=== PATIENT | female | born 1985 | race Caucasian/White ===

== ENCOUNTER 2020-01-27 12:31 | Emergency (ER) | payer OTHER, SELFPAY ==
--- NOTE | ~2020-01-27 | US_ITS ---
EXAMINATION: US pelvic complete w TV DATE: 01/27/2020 15:09 INDICATION: Abdominal pain for 5 days. Adnexal cysts. Comparison:CT dated 01/27/2020 TECHNIQUE: Multiple transabdominal and endovaginal sonographic images of the pelvis performed. FINDINGS: The uterus is surgically absent. There is a complicated right ovarian cyst measuring 7.4 x 3.8 x 3.8 cm with thin internal septations. No abnormal internal vascularity. There is a 2 cm left ov leigh cysts. The right ovary measures 5 x 8 x 4.7 cm and the left ovary measures 2.9 x 2.5 x 2.3 cm. There are sm all follicles in each ovary. There is no free fluid in the pelvis. There are no abnormal masses seen on either side. IMPRESSION: 1. Bilateral ovarian cysts, largest in the right ovary measuring 7.4 x 3.83 x 3.82 cm, likely benign. Follow-up ultrasound in 4-6 weeks recommended to assess for resolution. Reviewed, dictated and finalized at location A. IMPRESSION: 1. Bilateral ovarian cysts, largest in the right ovary measuring 7.4 x 3.83 x 3 .82 cm, likely benign. Follow-up ultrasound in 4-6 weeks recommended to assess for resolution.
--- NOTE | ~2020-01-27 | CT_ITS ---
EXAMINATION: CT abdomen pelvis w con DATE: 01/27/2020 13:58 INDICATION: Low abdominal pain. Diarrhea. TECHNIQUE: Computed tomography (CT) of the abdomen and pelvis was performed with 100 mL Omnipaque 350 intravenous contrast. Automated exposure control and iterative reconstruction technique were employe d. The dose-length product was 243.41 mGy-cm. COMPARISON: None. FINDINGS: The visualized portions of the lung bases demonstrate mild atelectasis. No pleural effusion . The heart size is normal. No pericardial effusion. There is a 5 mm cyst in the liver. The gallbladd er is absent. The spleen, pancreas, adrenal glands, and kidneys are normal. There are no dilated loop s of bowel. The appendix is normal. There is a 6.6 x 4.1 x 4.6 cm cyst in the right adnexa. There are no pathologically enlarged lymph nodes. There is no free intraperitoneal fluid. There is mild lumbar spondylosis. IMPRESSION: 1. 6.6 cm cyst in the right adnexa, likely benign. Pelvis ultrasound is recommended. Reviewed, dictated and finalized at location A. IMPRESSION: 1. 6.6 cm cyst in the right adnexa, likely benign. Pelvis ultrasound is recomme nded.
[2020-01-27 12:40] VITALS: BP 142/106; PULSE 81; RESP 18; TEMP 36.9; O2SAT 100
--- NOTE | 2020-01-27 13:04 | ED.ABDPAIN ---
HPI - Abdominal Pain General Chief Complaint: Abdominal Pain <ANI Glaser Last Filed: 01/27/20 15:38> Stated Complaint: abdominal pain <ANI Glaser Last Filed: 01/27/20 15:38> Time Seen by Provider: 01/27/20 12:38 <ANI Glaser Last Filed: 01/27/20 15:38> Source: patient <ANI Glaser Last Filed: 01/27/20 15:38> Mode of arrival: ambulatory <ANI Glaser Last Filed: 01/27/20 15:38> Limitations: no limitations <ANI Glaser Last Filed: 01/27/20 15:38> History of Present Illness HPI narrative: This is a 34-year-old female that presents emergency department for lower abdominal pain x5 days. Reports the pain is constant. Worse when she is moving. No associated symptoms. Reports she did a teleconference with her doctor for this who told her she might be constipated. She took mag citrate and has had diarrhea since. Denies fever, nausea, vomiting, dysuria or hematuria. <ANI Glaser Last Filed: 01/27/20 15:38> Related Data Home Medications: Home Medications Medication Instructions Recorded Confirmed albuterol sulfate [ProAir HFA] 2 INHALATION 01/27/20 bupropion HCl (smoking deter) 150 mg PO DAILY 01/27/20 01/27/20 calcium carbonate-vitamin D3 1 tablet PO BID 01/27/20 01/27/20 [Oysco 500/D] multivitamin 1 tablet PO DAILY 01/27/20 01/27/20 <ANI Glaser Last Filed: 01/27/20 15:38> Allergies/Adverse Reactions: Allergies Allergy/AdvReac Type Severity Reaction Status Date / Time tramadol Allergy Intermediate Hives / Unverified 01/27/20 12:44 Red Face <ANI Glaser Last Filed: 01/27/20 15:38> Review of Systems Review of Systems: Narrative: CONSTITUTIONAL: Denies fever GASTROINTESTINAL: Reports abdominal pain and diarrhea. Denies nausea, vomiting GENITOURINARY: Denies dysuria or hematuria. <Virginia Cool PA-C - Last Filed: 01/27/20 15:38> All systems reviewed & are unremarkable except as noted in HPI and below <Virginia Cool PA-C - Last Filed: 01/27/20 15:38> PMFSH Surgical History Surgical History: Surgical History (Updated 01/27/20 @ 13:04 by Virginia Cool PA-C) History of section History of hysterectomy History of tubal ligation <Virginia Cool PA-C - Last Filed: 01/27/20 15:38> Social History Social History: Social History (Updated 01/27/20 @ 13:04 by Virginia Cool PA-C) Smoking status: Current every day smoker Substance use type: marijuana <Virginia Cool PA-C - Last Filed: 01/27/20 15:38> Exam Narrative: Exam Narrative: GENERAL: Well-appearing, well-nourished, and in no acute distress. HEAD: Normocephalic, atraumatic. EYES: EOMI. CHEST: Clear to auscultation. No respiratory distress. No wheezes rales or rhonchi HEART: Regular rate and rhythm. No murmur heard. Normal peripheral pulses. ABDOMEN: Soft, nondistended, normal active bowel sounds. Mild tenderness palpation throughout the lower abdomen, without guarding EXTREMITIES: Normal range of motion. No edema. SKIN: Warm, dry, no rash. NEURO: No focal deficits. Alert and oriented x3. PSYCH: Normal mood and affect <Virginia Cool PA-C - Last Filed: 01/27/20 15:38> Course Consultations Consultation #1: Spoke with patient's automatic line set up mechanic, Dr. Amaya about work-up will follow-up in clinic. <Virginia Cool PA-C - Last Filed: 01/27/20 15:38> Date: 01/27/20 <Virginia Cool PA-C - Last Filed: 01/27/20 15:38> Time: 15:37 <Virginia Cool PA-C - Last Filed: 01/27/20 15:38> Vital Signs Vital signs: Vital Signs Temperature 36.9 C 01/27/20 12:40 Pulse Rate 81 01/27/20 12:40 Respiratory Rate 18 01/27/20 12:40 Blood Pressure 142/106 H 01/27/20 12:40 Pulse Oximetry 100 01/27/20 12:40 Temperature 36.9 C 01/27/20 12:40 Pulse Rate 78 01/27/20 15:53 Respiratory Rate 18 01/27/20 15:53 Blood
[2020-01-27 13:22] LABS: Basophils Absolute Auto 0.1 K/mm3 (0.0-0.1); Basophils Percent Auto 0.9 % (0.2-1.2); Eosinophils Absolute Auto 0.1 K/mm3 (0-0.3); Eosinophils Percent Auto 1.6 % (0-4.4); Hematocrit 39.2 % (37.0-47.0); Hemoglobin 13.5 g/dL (12.0-15.0); Immature Granulocyte Absolute 0.02 K/mm3 (0.00-0.031); Immature Granulocyte Percent A 0.2 % (0-0.5); Lymphocytes Percent Auto 36.8 % (18.3-44.2); Mean Corpuscular HGB Conc 34.4 g/dl (32-36); Mean Corpuscular Hemoglobin 32.5 pg (26-34); Mean Corpuscular Volume 94.2 fl (80-100); Mean Platelet Volume 12.8 fl (7.4-10.4); Monocytes Absolute Auto 0.6 K/mm3 (0.1-0.6); Monocytes Percent Auto 7.9 % (2.6-8.5); Neutrophils Absolute Auto 4.3 K/mm3 (1.3-6.7); Neutrophils Percent Auto 52.6 % (45.5-73.1); Platelet Count Result 147 k/mm3 (150-375); Red Blood Count 4.16 M/mm3 (4.2-5.4); Red Cell Distribution Width 12.8 % (11.5-14.5); White Blood Count 8.2 K/mm3 (4.5-10.0)
[2020-01-27 13:41] LABS: Alanine Aminotransferase 79 U/L (4-35); Albumin Level 4.6 g/dL (3.5-5.1); Alkaline Phosphatase 317 U/L (38-126); Aspartate Amino Transferase 63 U/L (14-36); Bilirubin,Total 0.5 mg/dL (0.2-1.3); Blood Urea Nitrogen 12 mg/dL (7-17); Calcium 9.7 mg/dL (8.4-10.2); Carbon Dioxide 22 mmol/L (22-30); Chloride 108 mmol/L (98-107); Estimated CRCL calculation 69 ml/min; Estimated Glomerular Filt Rate > 60; Glucose 89 mg/dL (65-105); Lipase 34 U/L (23-300); Potassium 3.9 mmol/L (3.4-5.0); Sodium 138 mmol/L (137-145)
[2020-01-27] MEDS: MORPHINE SULFATE 2 MG/ML INJ IV PUSH (13:45)
[2020-01-27] MEDS: ONDANSETRON INJ 4 MG/2 ML VIAL IV PUSH (13:45)
[2020-01-27] MEDS: SODIUM CHLORIDE 0.9% IV 1,000 ML 999 ML IV CONT (13:46)
[2020-01-27 13:48] VITALS: BP 99/62; PULSE 66; RESP 20; O2SAT 100
[2020-01-27 14:41] LABS: Add Urine Microscopic? NO; Amorphous Sediment Urine Few; Appearance Urine Clear (Clear); Bilirubin Urine Negative (Negative); Blood Urine Negative (Negative); Color Urine Yellow (Yellow); Glucose Urine UA Negative (Negative); Ketones Urine Negative (Negative); Leukocyte Esterase Ur Negative LEU/UL (Negative); Mucus Urine Rare /lpf; Nitrate Urine Negative (Negative); Protein Urine Negative (Negative); RBC Urine 0-2 /hpf (0-2); Squamous Epithelial Cell Urine Few /hpf (Few); Urobilinogen Urine Negative mg/dL (<2.0); WBC Urine 0-3 /hpf
[2020-01-27 14:43] LABS: Specific Grav Ur 1.043 (1.001-1.035)
[2020-01-27 15:53] VITALS: BP 112/68; PULSE 78; RESP 18; O2SAT 99
== END 2020-01-27 15:54 | disposition home or self-care (01) ==
PROVIDERS: Physician Assistant; Emergency Provider Emergency Medicine; PCP Internal Medicine Infectious Disease
DX: N83.202 Unspecified ovarian cyst, left side (principal); N83.201 Unspecified ovarian cyst, right side; F17.200 Nicotine dependence, unspecified, uncomplicated
CPT/HCPCS: 36415; 74177; 76830; 76856; 80053; 81003; 83690; 85025; 96361; 96365; 96375; 99284; J0131; J2270; J2405; J7030; Q9967

== ENCOUNTER 2020-03-09 07:16 | Emergency (ER) | payer OTHER, SELFPAY ==
--- NOTE | ~2020-03-09 | CT_ITS ---
EXAMINATION: CT abdomen pelvis w con DATE: 03/09/2020 08:06 INDICATION: Right lower quadrant abdominal pain. TECHNIQUE: Computed tomography (CT) of the abdomen and pelvis was performed . with 100 mL Omnipaque-3 50 intravenous contrast. Automated exposure control and iterative reconstruction technique were emplo yed. The dose-length product was 251.69 mGy-cm. COMPARISON: 01/27/2020 FINDINGS: Lung bases are clear. Inferior portion of the heart is unremarkable. No pericardial or pleural effusi on. Liver, spleen, pancreas, bilateral adrenal glands and kidneys are normal. Appendix is not visuali zed and is likely surgically absent. Normal gas-filled appendix. There are few scattered colonic dive rticula without adjacent inflammatory change to suggest diverticulitis. No bowel obstruction. The [place] is not identified and has likely been surgically resected. 3.5 cm right adnexal cyst. Left ovary is unremarkable. Bladder is normal. Trace amount of likely physiologic free fluid in the pelvis. No pathologically enlarged abdominal or pelvic lymphadenopathy. Minimal scattered degenerative skeletal changes. IMPRESSION: 1. Normal appendix. 2. 3.5 cm right adnexal cyst. 3. Mild diverticulosis. Reviewed, dictated and finalized at location A.
[2020-03-09 07:29] VITALS: BP 102/83; PULSE 77; RESP 18; TEMP 37; O2SAT 100
--- NOTE | 2020-03-09 07:31 | ED.ABDPAIN ---
HPI - Abdominal Pain General Chief Complaint: Abdominal Pain Stated Complaint: abd pain, rlq Time Seen by Provider: 03/09/20 07:31 History of Present Illness HPI narrative: 34 yo female with h/o IBS, ovarian cyst presents to the ED c/o RLQ pain. Constant pain x 1 week. Worsening in severity. No radiation. Associated with nausea. She has had similar symptoms in the past due to ovarian cysts. She is s/p hysterectomy and is planning for further surgery to treat the ovarian cysts. Also has h/o cholecystectomy. Related Data Home Medications Medication Instructions Recorded Confirmed albuterol sulfate [ProAir HFA] 2 INHALATION 01/27/20 bupropion HCl (smoking deter) 150 mg PO DAILY 01/27/20 01/27/20 calcium carbonate-vitamin D3 1 tablet PO BID 01/27/20 01/27/20 [Oysco 500/D] multivitamin 1 tablet PO DAILY 01/27/20 01/27/20 Allergies Allergy/AdvReac Type Severity Reaction Status Date / Time tramadol Allergy Intermediate Hives / Verified 03/09/20 07:34 Red Face cephalexin [From Keflex] Allergy Swelling Verified 03/09/20 07:34 Review of Systems Review of Systems: All systems reviewed & are unremarkable except as noted in HPI and below Constitutional: Constitutional: Denies fever(s) Cardiovascular: Cardiovascular: Denies chest pain Respiratory: Respiratory: Denies dyspnea Gastrointestinal: Gastrointestinal: Reports abdominal pain, Reports diarrhea, Reports nausea and Denies vomiting Genitourinary: Genitourinary: Denies hematuria and Denies dysuria [facility] Past Medical History Medical History (Updated 03/09/20 @ 10:28 by Tim Parada MD) Depression with anxiety IBS (irritable bowel syndrome) Surgical History Surgical History (Updated 03/09/20 @ 07:38 by Tim Parada MD) History of section History of cholecystectomy History of hysterectomy History of tubal ligation Social History Social History (Updated 01/27/20 @ 13:04 by Virginia Cool PA-C) Smoking status: Current every day smoker Substance use type: marijuana Exam Const: General: healthy appearing, no acute distress and alert Orientation/consciousness: patient oriented x3 HENMT: Head: normal to inspection Neck: Neck: normal visual inspection and no lymphadenopathy Chest: Chest palpation & inspection: no tenderness Resp: Effort & Inspection: normal respiratory effort Auscultation: clear to auscultation bilaterally, no rales, no rhonchi and no wheezes Cardio: Jugular venous distension: no JVD Rate: regular rate Rhythm: regular rhythm Heart sounds: no murmurs GI: Inspection: non-distended GI Palp: Yes Soft to palpation and Yes Tenderness to palpation present (GI) (lower abdomen) Skin: General skin exam: normal color Neuro: General: patient oriented x3 and moves all extremities Speech: normal speech Extrem: General: no edema Psych: Appearance: well kempt Affect: normal affect Course Vital Signs Vital signs: Vital Signs Temperature 37.0 C 03/09/20 07:29 Pulse Rate 77 03/09/20 07:29 Respiratory Rate 18 03/09/20 07:29 Blood Pressure 102/83 03/09/20 07:29 Pulse Oximetry 100 03/09/20 07:29 Temperature 37.0 C 03/09/20 07:29 Pulse Rate 60 03/09/20 09:49 Respiratory Rate 18 03/09/20 09:49 Blood Pressure 95/46 L 03/09/20 09:49 Pulse Oximetry 97 03/09/20 09:49 MDM - Abdominal Pain MDM Narrative Medical decision making narrative: She has an ovarian cyst smaller in size than seen on previous ultrasound. Medical Records Attestation: I reviewed the patient's medical records. Lab Data Attestation: I reviewed the patient's lab results. Result diagrams: 03/09/20 07:40 03/09/20 07:40 Labs: Lab Results 03/09/20 03/09/20 03/09/20 Range/Units 07:40 07:40 08:36 WBC 7.1 (4.5-10.0) K/mm3 RBC 4.13 L (4.2-5.4) M/mm3 Hgb 13.3 (12.0-15.0) g/dL Hct 39.2 (37.0-47.0) % MCV 94.9 (80-100) fl MCH 32.2 (26-34) p
[2020-03-09] MEDS: ONDANSETRON INJ 4 MG/2 ML VIAL IV PUSH (07:40)
[2020-03-09] MEDS: DICYCLOMINE HCL INJ 20 MG/2 ML VIAL IM (07:40)
[2020-03-09] MEDS: SODIUM CHLORIDE 0.9% IV 1,000 ML 999 ML IV CONT (07:40)
[2020-03-09] MEDS: KETOROLAC 30 MG/ML VIAL (*BKC) IV PUSH (07:40)
[2020-03-09 07:46] LABS: Basophils Absolute Auto 0.1 K/mm3 (0.0-0.1); Eosinophils Absolute Auto 0.1 K/mm3 (0-0.3); Eosinophils Percent Auto 1.8 % (0-4.4); Hematocrit 39.2 % (37.0-47.0); Hemoglobin 13.3 g/dL (12.0-15.0); Immature Granulocyte Absolute 0.02 K/mm3 (0.00-0.031); Immature Granulocyte Percent A 0.3 % (0-0.5); Lymphocytes Absolute Auto 3.23 K/mm3 (0.9-3.2); Lymphocytes Percent Auto 45.8 % (18.3-44.2); Mean Corpuscular HGB Conc 33.9 g/dl (32-36); Mean Corpuscular Hemoglobin 32.2 pg (26-34); Mean Corpuscular Volume 94.9 fl (80-100); Mean Platelet Volume 12.8 fl (7.4-10.4); Monocytes Absolute Auto 0.6 K/mm3 (0.1-0.6); Monocytes Percent Auto 8.4 % (2.6-8.5); Neutrophils Percent Auto 42.7 % (45.5-73.1); Platelet Count Result 139 k/mm3 (150-375); Red Blood Count 4.13 M/mm3 (4.2-5.4); Red Cell Distribution Width 12.7 % (11.5-14.5); White Blood Count 7.1 K/mm3 (4.5-10.0)
[2020-03-09 07:57] LABS: Alanine Aminotransferase 44 U/L (4-35); Albumin Level 4.6 g/dL (3.5-5.1); Alkaline Phosphatase 197 U/L (38-126); Aspartate Amino Transferase 46 U/L (14-36); Bilirubin,Total 0.6 mg/dL (0.2-1.3); Blood Urea Nitrogen 13 mg/dL (7-17); Calcium 9.5 mg/dL (8.4-10.2); Carbon Dioxide 19 mmol/L (22-30); Chloride 108 mmol/L (98-107); Estimated CRCL calculation 83 ml/min; Estimated Glomerular Filt Rate > 60; Glucose 97 mg/dL (65-105); Lipase 43 U/L (23-300); Potassium 3.8 mmol/L (3.4-5.0); Sodium 137 mmol/L (137-145)
[2020-03-09 08:45] LABS: Add Urine Microscopic? YES; Appearance Urine Clear (Clear); Bacteria Urine Trace /hpf; Bilirubin Urine Negative (Negative); Blood Urine Negative (Negative); Color Urine Colorless (Yellow); Glucose Urine UA Negative (Negative); Ketones Urine Trace mg/dL (Negative); Leukocyte Esterase Ur Negative LEU/UL (Negative); Mucus Urine Rare /lpf; Nitrate Urine Negative (Negative); Protein Urine Negative (Negative); RBC Urine 0-2 /hpf (0-2); Squamous Epithelial Cell Urine Moderate /hpf (Few); Urobilinogen Urine Negative mg/dL (<2.0); WBC Urine 0-3 /hpf
[2020-03-09 09:49] VITALS: BP 95/46; PULSE 60; RESP 18; O2SAT 97
== END 2020-03-09 10:39 | disposition home or self-care (01) ==
PROVIDERS: Emergency Provider Emergency Medicine; PCP Internal Medicine Infectious Disease
DX: N83.201 Unspecified ovarian cyst, right side (principal); F17.210 Nicotine dependence, cigarettes, uncomplicated
CPT/HCPCS: 36415; 74177; 80053; 81001; 83690; 85025; 96361; 96372; 96374; 96375; 99284; J0500; J1885; J2405; J7030; Q9967